=== PATIENT | female | born 1960 | race Caucasian/White ===

== ENCOUNTER → 2017-11-12 | Outpatient (CLI) | payer OTHER ==
[2017-11-12 10:34] LABS: CREATININE 0.9 mg/dL (0.6-1.3)
== END ==
LOC: M.CT 10:00
PROVIDERS: Urology
DX: K76.0 Fatty (change of) liver, not elsewhere classified (principal)

== ENCOUNTER → 2018-03-11 | Outpatient (CLI) | payer OTHER ==
--- NOTE | 2018-03-13 11:49 | TST ---
[place] [address] TREADMILL STRESS TEST Name: JUSTINLION Darryl Room: [facility]#: [id number] Admission: 03/11/18 Attend Phys: Henny Santiago Discharge: Date of : 62 Date of Service: 03/11/18 1607 Report #: [id number] THIS REPORT FOR: //name// CC: Nata Diaz NP DATE OF SERVICE: 03/11/2018 Resting 12-lead electrocardiogram demonstrates sinus rhythm with a minor interventricular conduction delay of the right side. The patient exercised for 9 minutes of a standard Amadeo protocol, stopping because of fatigue. The patient achieved a peak heart rate of 146, 90% of the age-predicted maximum. Blood pressure was 132/94 initially, increasing to 236/106 at peak exercise and falling to 139/98 during the post-exercise phase. There were no ischemic ST-T alterations noted during post-exercise. Rare isolated PVC was observed; there were no complex arrhythmias. IMPRESSION: 1. Negative treadmill exercise test for provocation of ischemic ST-T alterations. 2. No chest pain provoked by exertion. 3. Appropriate heart rate and systolic blood pressure response to exercise. 4. Mild diastolic hypertension at rest. 5. No significant arrhythmias were noted; a rare isolated PVC was observed. 6. Satisfactory level of fitness for age. <ELECTRONICALLY SIGNED> By: Francisco Cornelius MD, FACC 03/13/18 1149 1607 2130 Francisco Cornelius MD, [facility] /nt
== END ==
LOC: M.ULTRA 02-20 16:18 → M.CRD 12:05
DX: E04.2 Nontoxic multinodular goiter (principal); R79.89 Other specified abnormal findings of blood chemistry

== ENCOUNTER 2020-11-20 05:46 | Inpatient (IN) | payer OTHER ==
[~2020-11-20] VITALS: Ht 172.7 cm; Wt 87.5 kg
[2020-11-20] VITALS (14 sets, daily range): BP systolic 125–185; BP diastolic 78–113
[2020-11-20 06:19] LABS: ABSOLUTE BASOPHILS 0.1 thou/uL (0.0-0.2); ABSOLUTE EOSINOPHILS 0.2 thou/uL (0.0-0.7); ABSOLUTE LYMPHOCYTES 3.5 thou/uL (0.8-5.3); ABSOLUTE MONOCYTES 0.9 thou/uL (0.0-1.2); ABSOLUTE NEUTROPHILS 6.1 thou/uL (1.6-8.1); BASOPHILS 0.9 %; EOSINOPHILS 1.8 %; HEMOGLOBIN 16.4 gm/dL (12.0-15.0); LYMPHOCYTES 32.2 %; MCH 31.1 pg (26.0-34.0); MCHC 34.2 g/dL (28.0-37.0); MCV 91.2 fL (80.0-100.0); MONOCYTES 8.4 %; MPV 9.5 fl. (7.2-11.1); NUCLEATED RBCS 0 /100WBC; PLATELET COUNT* 267 thou/uL (150-400); POLYS 56.7 %; RBC 5.26 mil/uL (4.20-5.00); RDW-CV 13.9 % (10.5-14.5); WBC 10.8 thou/uL (4.0-11.0)
[2020-11-20 06:30] LABS: APTT 24.9 Seconds (25.0-31.3); PROTIME 10.2 Seconds (9.20-11.50)
[2020-11-20 06:35] LABS: CALCIUM 9.1 mg/dL (8.5-10.1); POTASSIUM 4.8 mmol/L (3.5-5.1)
[2020-11-20 06:46] LABS: ALBUMIN 4.1 g/dL (3.4-5.0); TOTAL BILIRUBIN 0.4 mg/dL (<0.1-1.0); TOTAL PROTEIN 7.7 g/dL (6.4-8.2)
--- NOTE | 2020-11-20 10:12 | EKG ---
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 : 1960 Requested By: Essence Ortega Order Number: [id number] MD: Ozzy Torres Measurements Intervals [place] Rate: 70 P: 44 [place]: 135 QRS: 38 QRSD: 88 T: 103 QT: 386 QTc: 417 Interpretive Statements Sinus rhythm Inferior infarct, acute (RCA) Probable RV involvement, suggest recording right precordial leads No previous ECG available for comparison Electronically Signed On 11-20-2020 10:12:17 CDT by Ozzy Torres [email or web address] <ELECTRONICALLY SIGNED> By: Ozzy Torres MD, [facility] 11/20/20 1012 0558 0558 Ozzy Torres MD, [facility] /EPI
--- NOTE | 2020-11-20 10:13 | EKG ---
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
--- NOTE | 2020-11-20 10:37 | CARD ---
[address] [address] CARDIAC CATH REPORT Name: LION ANDERSON Room: [address] M.R.#: [id number] Admission: 11/20/20 Attend Phys: Ozzy Torres MD, F Discharge: Date of : 62 Report #: [id number] THIS REPORT FOR: cc: Henny Diaz Stefany RNP Blick, David R. MD [facility] ~ APPROVED REPORT Study performed: 11/20/2020 06:38:57 Patient Details Patient Status: ED Room #: The patient is a 60 year-old female Event Personnel Ozzy Torres Caregivers Homecare, Becca Garcia RN Corporate Quality Manager, Jolly Carey RN Monitor, Sandra Jimenez RTR Scrub Procedures Performed Art Access - R femoral artery* ; Left Heart Cath w/or w/o Coronaries; LALO Revasc AMI Total/Sub Single RCA; Hemostasis w/ Angioseal Indication Abnormal ECG, STEMI (>0 to less than or equal to 6 hours), Dyspnea, Chest pain Risk Factors Dysplipidemia , Hypercholesterolemia, Tobacco History (2 packs/day) Admission/Lab Medications/Medications given during procedure Aspirin, Glycoprotein IllbIlla Inhibitors, Heparin Unfract. Procedure Narrative The patient was brought emergently to the Cardiac Catheterization Laboratory and was prepped and draped in a sterile manner. The right femoral was infiltrated with 2% Lidocaine subcutaneous anesthesia. IV conscious sedation was used throughout procedure with appropriate monitoring and was performed in the presence of a registered nurse who was an independent trained observer other than the physician performing the procedure. A 6Fr x 12cm [place] [address] CARDIAC CATH REPORT Name: LION ANDERSON Room: [address]#: [id number] Admission: 11/20/20 Attend Phys: Ozzy Torres MD, F Discharge: Date of : 62 Report #: [id number] into the right femoral artery. Coronary angiography was performed using coronary diagnostic catheters. The right coronary system was accessed and visualized with a Diagnostic JR4 catheter. The left coronary system was accessed and visualized with a Diagnostic JL4 catheter. The left ventricle was accessed and visualized with a Diagnostic PIGTAIL catheter. Left ventricular/Aortic Valve gradient assessed via catheter pullback. Left ventriculogram was performed in SCHWARTZ projection. Closure device was deployed with a 6 Fr Angioseal. The patient tolerated the procedure well and there were no complications associated with the procedure. There was no hematoma. Intraoperative Conscious Sedation Sedation start time: 7:04 Case end Time: 7:30 Fentanyl 25 mcg Versed 1 mg Dose: 680 mGy Contrast Type and Amount: Visipaque 100 ml Coronary Angiography The patient's coronary anatomy is right dominant. Diagnostic Cath Left Main 0% stenosis LAD 0% stenosis Circumflex 0% stenosis Right Coronary Proximal acute 100% occlusion with staining consistent with thrombus formation. 50% distal stenosis Left Ventriculography The left ventricular ejection fraction is estimated to be 55-60%. Left ventricular wall motion abnormalities are present. There is no mitral insufficiency. mild inferior hypokinesis Hemodynamics The aortic pressure is 184/97 mmHg with a mean of 136 mmHg. The left ventricular pressure is 86/10 mmHg with a mean of mmHg. The left ventricular end diastolic pressure is 12 mmHg. There was no gradient across the aortic valve upon pullback. Pullback from the left ventricle to the aorta revealed no gradient across the aortic valve[place] [address] CARDIAC CATH REPORT Name: LION ANDERSON Room: [address]#: [id number] Admission: 11/20/20 Attend Phys: Ozzy Torres MD, F Discharge: Date of : 62 Report #: [id number] Anticoagulation was achieved with Heparin . bolus of IV aggrastat given Percutaneous coronary intervention was performed on the proximal right coronary artery. The lesion stenosis prior to intervention was 100% with SHANNON 0 flow. A 6FR JCR 4 100CM Guide Catheter was used to engage the RCA ostium. A IG: BMW 190cm Interventional Guidewire was used to cross the lesion. BALLOON DILATION A Balloon catheter Trek RX 2.5 X 12 was inserted and inflated up to 20.00atm for 17seconds. Repeat angiography revealed the following post-dilatation results: 60% stenosis. Additional Inflation: 22.00atm for 24seconds. The patient developed sinus bradycardia after balloon inflation with reperfusion, and was given 0.5 mg IV atropine STENT DEPLOYMENT A drug-eluting stent Rawlings RX Stent 4.5X18mm was inserted and inflated up to 22.00atm for 8seconds. Repeat angiography revealed the following post-stent deployment results: 0% stenosis. Final angiography reveals 0 % stenosis with SHANNON 3 flow. Conclusion 1. acute occlusion of the proximal RCA 2. LVEF 55-60% 3. succssful placement of a drug eluting stent in the RCA Recommendations Smoking Cessation Cardiac Rehabilitation Referral Aggressive Medical Therapy Medications Administered Prasugrel <ELECTRONICALLY SIGNED> By: Ozzy Torres MD, FACC 11/20/20 1037 1037 1037Davihorace Torres MD, FACC /INF
--- NOTE | 2020-11-20 12:58 | H ---
[address] [address] HISTORY AND PHYSICAL Name: LION ANDERSON Room: [place] [address] ADM IN M.R.#: [id number] Admission: 11/20/20 Attend Phys: Ozzy Torres MD, F Discharge: Date of : 62 Report #: [id number] THIS REPORT FOR: cc: Henny Diaz Stefany RNP Blick, David R. MD [facility] ~ cc: Henny Diaz NP DATE OF SERVICE: 11/20/2020 HISTORY OF PRESENT ILLNESS: The patient is a 60-year-old white female who I was asked to see in the emergency room today after she complained of chest pain. The patient has no previous history of heart disease. She apparently had a stress test here at [facility] in 2018 that showed no evidence of ischemia. She is not very active this time. She notes for the past 3 days, she has been having intermittent burning in her chest. It is not related to exertion or meals. She has had no fever. She does have chronic cough. She has had no bleeding. The pain would last for several minutes and then resolve. On the morning of admission, she was driving to work when she again had chest burning. It went down her arm. She became diaphoretic and nauseated. She turned around and drove home. Her brought her to the emergency room. An ECG showed evidence of an acute inferior STEMI. I was asked to see her on an emergent basis. She denied any recent trauma to her chest. She denies a history of exertional dyspnea, palpitations, syncope, peripheral edema. PAST MEDICAL HISTORY: She has had previous tubal . She has been told in the past her cholesterol was high. CURRENT MEDICATIONS: She is currently on no prescription medications. ALLERGIES: She has no known drug allergies. FAMILY HISTORY: Negative for heart disease. SOCIAL HISTORY: She is . She and her live in [place], [place]. 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 She smokes 2 packs of cigarettes a day. No alcohol abuse. She smokes marijuana occasionally. REVIEW OF SYSTEMS: No history of stroke, asthma, liver disease, kidney disease, cancer, chronic skin condition, psychiatric illness. PHYSICAL EXAMINATION: GENERAL: Revealed a middle-aged female who appeared in moderate distress. VITAL SIGNS: Her blood pressure initially was 160/90, pulse was 80. HEENT: She was anicteric. Conjunctivae are pink. [place] [address] HISTORY AND PHYSICAL Name: LION ANDERSON Room: [address] IN [facility]#: [id number] Admission: 11/20/20 Attend Phys: Ozzy Torres MD, F Discharge: Date of : 62 Report #: [id number] NECK: Veins do not appear distended. No carotid bruits. NECK: Supple. CHEST: Clear to auscultation. HEART: Regular rate and rhythm without murmur. ABDOMEN: Soft. EXTREMITIES: Had no edema. Posterior tibial pulse 2+ bilaterally. SKIN: Cool and dry. NEUROLOGIC: Nonfocal. LYMPHATIC: No adenopathy. MUSCULOSKELETAL: No joint effusion. LABORATORY DATA: ECG on admission showed sinus rhythm with up to 2.[address] segment elevation in lead II, III, aVF, reciprocal ST segment depression in I, aVL, V1 and V2. Chest x-ray, normal heart size, clear lung ortega. LABORATORY DATA: Potassium 4.8, creatinine 1.0, glucose is 174. Her troponin was 2.13. BNP 960. White blood cell count 10.8, hemoglobin 16.4. Her COVID antigen stat test was negative. IMPRESSION AND RECOMMENDATIONS: 1. Acute inferior STEMI. Recommend urgent cardiac catheterization. 2. Tobacco abuse. 3. Chronic bronchitis. 4. Elevated blood sugar. Recommend ruling out diabetes. Critical care time was from 7:00 a.m. to 8:30 a.m. for a total of 1-1/2 hours. <ELECTRONICALLY SIGNED> By: Ozzy Torres MD, [facility] 11/20/20 1258 0653 0735Datanya Torres MD, [facility] /nt
[2020-11-20] MEDS ORDERED: CHOLEST OFF450 MG PO (17:51)
[2020-11-21] VITALS (7 sets, daily range): BP systolic 112–137; BP diastolic 66–84
[2020-11-21 04:41] LABS: HEMATOCRIT 39.8 % (37.0-47.0); MCH 31.6 pg (26.0-34.0); MCV 90.4 fL (80.0-100.0); MPV 9.3 fl. (7.2-11.1); RBC 4.4 mil/uL (4.20-5.00); WBC 8.2 thou/uL (4.0-11.0)
[2020-11-21 04:47] LABS: CALCIUM 8.6 mg/dL (8.5-10.1); CREATININE 0.9 mg/dL (0.6-1.3); POTASSIUM 4.1 mmol/L (3.5-5.1)
[2020-11-21 04:54] LABS: CHOLESTEROL 193 mg/dL (<200); HDL CHOLESTEROL 31 mg/dL (>40); LDL CHOLESTEROL 112 mg/dL (<100); TC:HDL 6.2 Ratio (Not establshd); TRIGLYCERIDE 251 mg/dL (<150); VLDL 50 mg/dL (<40)
[2020-11-21 04:57] LABS: HEMOGLOBIN 13.9 gm/dL (12.0-15.0)
[2020-11-21 05:18] LABS: SERUM ASSESSMENT Clear
[2020-11-21 05:19] LABS: TROPONIN-I LEVEL 10.66 ng/mL (<0.06)
--- NOTE | 2020-11-21 11:37 | EKG ---
[place] [address] ELECTROCARDIOGRAM REPORT Name: LION ANDERSON Room: [address] ADM IN .R.#: [id number] Admission: 11/20/20 Attend Phys: Ozzy Torres MD Discharge: Date of : 62 Date of Service: 11/21/20604 Report #: [id number] THIS REPORT FOR: //name// [facility] Test Date: 2020-11-21 Test Time: 06:05:14 Pat Name: LION ANDERSON Department: Room: [facility] Gender: F Application Release Manager: [id number] : 1960 Requested By: Ozzy Torres Order Number: [id number] Reading MD: Ozzy Torres Measurements Intervals [place] Rate: 69 P: 46 [place]: 148 QRS: -25 QRSD: 99 T: -71 QT: 472 QTc: 506 Interpretive Statements Sinus rhythm Borderline left axis deviation Abnormal T, consider ischemia, diffuse leads Compared to ECG 11/20/2020 08:23:01 T-wave abnormality now present ST (T wave) deviation now present Electronically Signed On 11-21-2020 11:37:00 CDT by Ozzy Torres [email or web address] <ELECTRONICALLY SIGNED> By: Ozzy Torres MD, FACC 11/21/20 1137 Ozzy Torres MD, FAC /EPI
[2020-11-22 00:55] VITALS: BP 134/69
[2020-11-22 04:33] VITALS: BP 122/61
[2020-11-22 07:09] LABS: GLYCOHEMOGLOBIN (HGB A1C) 5.9 % (4.8-5.6)
[2020-11-22 07:50] VITALS: BP 153/79
[2020-11-22] MEDS ORDERED: COREG6.25 MG PO (09:42)
[2020-11-22] MEDS ORDERED: BAYER CHEWABLE81 MG PO (09:42)
[2020-11-22] MEDS ORDERED: EFFIENT10 MG PO (09:42)
[2020-11-22] MEDS ORDERED: LIPITOR40 MG PO (09:42)
[2020-11-22 10:03] VITALS: BP 153/79
[2020-11-22 10:07] VITALS: BP 153/79
--- NOTE | 2020-11-22 14:14 | D ---
[facility] [address] [place] [address] DISCHARGE SUMMARY Name: LION ANDERSON Room: [address] IN M.R.#: [id number] Admission: 11/20/20 Attend Phys: Ozzy Torres MD, F Discharge: 11/22/20 Date of : 62 Report #: [id number] THIS REPORT FOR: cc: Henny Diaz Stefany RNP Blick, David R. MD [facility] ~ cc: Henny Diaz N.P. DATE OF DISCHARGE: 11/22/2020 DISCHARGE DIAGNOSES: 1. Acute inferior ST segment elevation myocardial infarction. 2. Coronary artery disease. 3. Tobacco abuse. 4. Hyperlipidemia. CONSULTANTS: None. PROCEDURES: Emergent left heart catheterization with placement of a single drug-eluting stent in the right coronary artery via the femoral approach. HISTORY OF PRESENT ILLNESS: The patient is a 60-year-old white female who I was asked to see in the Emergency Room after she complained of chest pain. The patient has no previous history of heart disease. For 3 days prior to admission, the patient has been having intermittent burning in her chest. It was not related to exertion or meals. She has had no fever, although she does have a chronic cough. She has had no bleeding. The pain would last several minutes and resolve. On the morning of admission, she was driving to work when she again had a chest burning, went into her arm. She became nauseated and diaphoretic. She turned around and went home. Her drove her to the Emergency Room. ECG showed evidence of acute inferior STEMI. I was asked to see her on an emergent basis. PAST MEDICAL HISTORY: She has had previous tubal . She was told in the past her cholesterol was high. MEDICATIONS: Her only current medications included Zyrtec for allergies and inhaler for occasional asthma. She was taking sterile plant extracts [id number]. ALLERGIES: She had no known drug allergies. PHYSICAL EXAMINATION: VITAL SIGNS: On admission, blood pressure was 160/90, pulse was 80. CHEST: Clear to auscultation. CARDIAC: Regular rate and [place] [address] DISCHARGE SUMMARY Name: LION ANDERSON Room: [address]#: [id number] Admission: 11/20/20 Attend Phys: Ozzy Torres MD, F Discharge: 11/22/20 Date of : 62 Report #: [id number] ABDOMEN: Soft. EXTREMITIES: No edema. ECG on admission showed a sinus rhythm with up to 2.[address] segment elevation in lead II, III and aVF, reciprocal ST segment depression in I, aVL, V1 and V2. Chest x-ray showed normal heart size, clear lung ortega. LABORATORY DATA: On admission, creatinine 1.0. Troponin was elevated to 2.13, hemoglobin 16.4. HOSPITAL COURSE: The patient was felt to be having an acute inferior STEMI. I have recommended an urgent cardiac catheterization. She was taken urgently to the cardiac catheterization laboratory. The procedure was performed from the right femoral artery. Results showed no significant disease in the LAD or circumflex. The dominant right coronary artery was proximally occluded with a clot. I have recommended an urgent angioplasty. She was then given heparin and Aggrastat. I performed balloon angioplasty and then placed a single drug-eluting stent in the proximal right coronary artery. She tolerated the procedure well. Angio-Seal was placed in the right femoral artery. Following the procedure, she had no further chest pain, shortness of breath, arrhythmias. She began to ambulate with cardiac rehabilitation. She developed no hematoma of the groin. The patient had no difficulty in smoking cessation. Follow up lab work during her hospitalization included repeat creatinine 0.9, fasting blood sugar is 123. Her liver function studies were normal. Her peak troponin was 10.6. Her cholesterol is 193, triglyceride 251, HDL 31, LDL 112. Glycosylated hemoglobin was 5.9 with an average glucose 123 consistent with glucose intolerance. Follow up hemoglobin was only 13.9. Follow up ECG after the myocardial infarction showed a sinus rhythm with inferior inverted T waves. Prior to discharge, the patient is ambulating with cardiac rehabilitation. At the time of discharge, her blood pressure is 130/80, pulse is 70, she is afebrile. She was discharged on the following medications: She was taking aspirin 81 mg a day. She was started on Effient 10 mg a day, carvedilol 6.25 mg twice a day, Lipitor 40 mg a day and she was given nitroglycerin to take as needed for chest pain. I would aim for an LDL of less than 70. If she continues to have elevated triglycerides, I would consider adding Vascepa. The patient was instructed on a low fat, low carbohydrate diet because of her glucose intolerance. She was discharged to return to the care of Henny Diza for routine medical care. I strongly recommend that she attempt to stop smoking. I encouraged her to enroll in cardiac rehabilitation. She was scheduled to return to see my nurse practitioner in the cardiology clinic on 11/28. I plan on seeing her in cardiology clinic on 01/09. She was to contact my office if she had recurrent chest pain, shortness of breath or bleeding. 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 She is felt to have a good prognosis from cardiac standpoint due to single vessel disease and preserved left ventricular [address] [address] DISCHARGE SUMMARY Name: LION ANDERSON Room: [address] IN [facility].#: [id number] Admission: 11/20/20 Attend Phys: Ozzy Torres MD, F Discharge: 11/22/20 Date of : 62 Report #: [id number] function. Her ejection fraction at the time of her myocardial infarction by left ventriculography was estimated at 55-60%. <ELECTRONICALLY SIGNED> By: Ozzy Torres MD, FACC 11/22/20 1414 0835 [id number] Torres MD, FACC /nt
== END 2020-11-22 12:02 | disposition home or self-care (01) | DRG 247 ==
LOC: M.ERS 05:46 → M.TBA-CV 06:37 → M.CL 06:37 → M.TBA-CV 12:49 → M.2W 12:49 → M.CL 12:49 → M.2W 17:23
PROVIDERS: Personal Emergency Response Attendant; ADMIT Internal Medicine Cardiovascular Disease; ATTEND Internal Medicine Cardiovascular Disease
DX: I21.19 ST elevation (STEMI) myocardial infarction involving other coronary artery of inferior wall (principal); E78.00 Pure hypercholesterolemia, unspecified; R73.9 Hyperglycemia, unspecified; J42 Unspecified chronic bronchitis; I25.10 Atherosclerotic heart disease of native coronary artery without angina pectoris; E78.5 Hyperlipidemia, unspecified; F17.210 Nicotine dependence, cigarettes, uncomplicated; F12.90 Cannabis use, unspecified, uncomplicated; Z20.822 Contact with and (suspected) exposure to COVID-19

== ENCOUNTER → 2021-02-02 | Outpatient (CLI) | payer OTHER ==
[~2021-02-02] MED LIST: BAYER CHEWABLE81 MG PO; CHOLEST OFF450 MG PO; COREG6.25 MG PO; EFFIENT10 MG PO; LIPITOR40 MG PO
== END ==
LOC: M.ULTRA 13:45
PROVIDERS: ATTEND Internal Medicine Endocrinology, Diabetes & Metabolism
DX: E04.2 Nontoxic multinodular goiter (principal)